=== PATIENT | male | born 1970 ===

== ENCOUNTER → 2019-06-18 | Day surgery (SDC) | payer MEDICAID ==
[2019-06-18 16:47] LABS: GLUCOSE,CSF 121 MG/DL (40-75); TOTAL PROTEIN,CSF 191 MG/DL (15-45)
[2019-06-18 17:33] LABS: APPEARANCE,CSF HAZY
[2019-06-18 17:36] LABS: CSF SUPERNATANT COLOR XANTHOCHROMIC; CSF VOLUME 18.5 ML; TUBE# COUNTED 3
[2019-06-18 17:41] LABS: CSF RBC 300 /CU MM (0)
[2019-06-18 17:56] LABS: CSF WBC CT 77 /CU MM (0-5)
[2019-06-18 18:10] LABS: LYMPHOCYTES,CSF 91 % (40-80); MONOCYTES,CSF 1 % (15-45); NEUTRO,CSF 8 % (0-6)
== END | disposition home or self-care (01) ==
LOC: RAD 14:56
PROVIDERS: ATTEND Specialist
DX: R41.82 Altered mental status, unspecified (principal); G03.9 Meningitis, unspecified; G93.49 Other encephalopathy
CPT/HCPCS: 36415; 62270; 70450; 70551; 77003; 82945; 84157; 87015; 87070; 87102; 89051

== ENCOUNTER 2019-07-02 07:01 | Day surgery (SDC) | payer MEDICAID ==
[~2019-07-02] VITALS: Ht 170.2 cm; Wt 68.0 kg
[2019-07-02] MEDS ORDERED: LIDOcaine 1% W/epiNEPHrine 1:200,000 10ml vial IJ ONE (07:20)
[2019-07-02] MEDS ORDERED: LEVO50TA8 PO (08:02)
[2019-07-02] MEDS ORDERED: ATOR40TA71 PO (08:02)
[2019-07-02] MEDS ORDERED: INSU100C10 SQ (08:02)
[2019-07-02] MEDS ORDERED: ZITTEL BALM TOP (08:02)
[2019-07-02] MEDS ORDERED: INSU300I SQ (08:02)
[2019-07-02] MEDS ORDERED: DOCU-148 PO (08:02)
[2019-07-02] MEDS ORDERED: FOLI0.8T19 PO (08:02)
[2019-07-02] MEDS ORDERED: MEGE40TA27 PO (08:02)
[2019-07-02] MEDS ORDERED: BALS60OI TOP (08:02)
[2019-07-02] MEDS ORDERED: VORI200T3 PO (08:02)
[2019-07-02] MEDS ORDERED: MIDO5TAB4 PO (08:02)
[2019-07-02] MEDS ORDERED: CHOL4PAC2 PO (08:02)
[2019-07-02 08:30] VITALS: BP_SYST 125; BP_SYST 133; BP_DIAS 77; BP_DIAS 82
[2019-07-02 08:42] VITALS: BP 125/77
== END 2019-07-02 10:00 ==
LOC: SSTAY O 07:01
PROVIDERS: ATTEND Radiology Vascular & Interventional Radiology
DX: Z49.01 Encounter for fitting and adjustment of extracorporeal dialysis catheter (principal); E11.22 Type 2 diabetes mellitus with diabetic chronic kidney disease; N18.6 End stage renal disease; I50.9 Heart failure, unspecified; Z98.890 Other specified postprocedural states; Z79.4 Long term (current) use of insulin; Z79.899 Other long term (current) drug therapy
CPT/HCPCS: 36589; 82948

== ENCOUNTER 2019-07-16 16:30 | Outpatient (CLI) | payer MEDICAID ==
[~2019-07-16 16:30] MED LIST: ATOR40TA71 PO; BALS60OI TOP; CHOL4PAC2 PO; DOCU-148 PO; FOLI0.8T19 PO; INSU100C10 SQ; INSU300I SQ; LEVO50TA8 PO; MEGE40TA27 PO; MIDO5TAB4 PO; VORI200T3 PO; ZITTEL BALM TOP
[2019-07-17 12:47] LABS: C DIFF ANTIGEN NEGATIVE (NEGATIVE); C DIFF SPECIMEN=DIARRHEA? ACCEPTABLE; C DIFFICILE TOXINS A&B NEGATIVE (Neg)
== END 2019-07-16 23:59 | disposition home or self-care (01) ==
LOC: LAB SPEC 16:30
PROVIDERS: ATTEND Internal Medicine
DX: G03.8 Meningitis due to other specified causes (principal)
CPT/HCPCS: 87324; 87449

== ENCOUNTER 2019-07-20 11:04 | Outpatient (CLI) | payer MEDICAID ==
[2019-07-20 14:30] LABS: C DIFF ANTIGEN SEE COMMENTS (NEGATIVE); C DIFF SPECIMEN=DIARRHEA? ACCEPTABLE; C DIFFICILE TOXINS A&B NEGATIVE (Neg)
[2019-07-20 14:31] LABS: C DIFF TOXIN (LAMP) NEGATIVE (NEG)
== END 2019-07-20 23:59 | disposition home or self-care (01) ==
LOC: LAB SPEC 11:04
PROVIDERS: ATTEND Specialist
DX: E11.9 Type 2 diabetes mellitus without complications (principal)
CPT/HCPCS: 87324; 87449; 87493